=== PATIENT | female | born 1960 | race Caucasian/White ===

== ENCOUNTER 2024-06-07 14:56 | Observation (INO) | payer MEDICARE ==
[~2024-06-07] VITALS: Ht 165.1 cm; Wt 82.9 kg
[2024-06-07] MEDS: ONDANSETRON 4MG 2ML VIAL IV ONE (15:40)
[2024-06-07 15:53] LABS: HEMATOCRIT 35.4 % (36.0-47.0); HEMOGLOBIN 11.3 g/dl (12.0-15.5); MEAN CORPUSCULAR HEMOGLOBIN 29.7 pg (27.0-33.0); MEAN CORPUSCULAR HGB CONC 31.9 g/dl (32.0-36.5); MEAN CORPUSCULAR VOLUME 92.9 fl (80.0-96.0); PLATELET COUNT, AUTOMATED 275 10^3/uL (150-450); RED BLOOD COUNT 3.81 10^6/uL (4.00-5.40); WHITE BLOOD COUNT 10.1 10^3/uL (4.0-10.0)
[2024-06-07 16:12] LABS: BLOOD UREA NITROGEN 20 MG/DL (9-23); CALCIUM LEVEL 9.2 MG/DL (8.3-10.6); CARBON DIOXIDE LEVEL 27 MMOL/L (20-31); CHLORIDE LEVEL 104 MMOL/L (98-107); CREATININE FOR GFR 0.88 MG/DL (0.55-1.30); GLOMERULAR FILTRATION RATE > 60.0 (>45); GLUCOSE, FASTING 112 MG/DL (74-106); POTASSIUM SERUM 4.4 MMOL/L (3.5-5.1); SODIUM LEVEL 139 MMOL/L (136-145)
[2024-06-07] MEDS: BOOSTRIX VACCINE (TETANUS/DIPHTH/ACEL. PERTUSSIS) 0.5ML SYR IM.IMMUN ONE (16:40)
[2024-06-07] MEDS ORDERED: EZET10TA21 PO (16:54)
[2024-06-07] MEDS ORDERED: BRIL90TA PO (16:54)
[2024-06-07] MEDS ORDERED: ESCI5SOL3 PO (16:55)
[2024-06-07] MEDS ORDERED: ISOVUE-370 76% 100ML VIAL As Ordered ONE (18:42)
[2024-06-07] MEDS ORDERED: THERTAB52 PO (19:03)
[2024-06-07] MEDS ORDERED: ASPI81TA26 PO (19:03)
[2024-06-07] MEDS ORDERED: CALCCAP4 PO (19:03)
[2024-06-07] MEDS ORDERED: RANO500T2 PO (19:03)
[2024-06-07] MEDS ORDERED: LEXA1TAB2 PO (19:03)
[2024-06-07] MEDS ORDERED: BUSP5TA PO (19:03)
[2024-06-07] MEDS ORDERED: OMEP40CA5 PO (19:03)
[2024-06-07] MEDS ORDERED: ATOR40TA75 PO (19:03)
[2024-06-07] MEDS ORDERED: METO1TAB32 PO (19:03)
[2024-06-07] MEDS ORDERED: HOME MED LIST COMPLETE! XX SCH (19:05)
[2024-06-07] MEDS: ACETAMINOPHEN *IV* 1,000 MG in IV 1 EA IV ONE (21:12)
[2024-06-07] MEDS ORDERED: SILVER SULFADIAZINE 1% CR 50 GM JAR TOP ONE (23:00)
[2024-06-07] MEDS ORDERED: SILVER NITRATE APPLICATOR (1 = QTY 10) TOP ONE (23:40)
[2024-06-07] MEDS: SILVER NITRATE APPLICATOR (1 = QTY 10) TOP ONE (23:45)
[2024-06-08] MEDS: busPIRone 5 MG TAB PO SCH (00:23)
[2024-06-08] MEDS: ATORVASTATIN 20 MG TAB PO SCH (00:23)
[2024-06-08] MEDS: ESCITALOPRAM OXALATE 10 MG TAB (LEXAPRO) PO SCH (00:23)
[2024-06-08] MEDS: EZETIMIBE 10MG TABLET (ZETIA) PO SCH (01:31)
[2024-06-08] MEDS: ACETAMINOPHEN 325 MG TAB PO PRN (01:31)
[2024-06-08 01:34] VITALS: BP 144/68; TEMP 96.8; O2SAT 99
[2024-06-08] MEDS: RANOLAZINE 500MG ER TAB PO SCH (01:44)
[2024-06-08 04:44] VITALS: BP 132/66; TEMP 97.3; O2SAT 97
[2024-06-08 07:02] LABS: HEMATOCRIT 28.7 % (36.0-47.0); HEMOGLOBIN 9.4 g/dl (12.0-15.5); MEAN CORPUSCULAR HGB CONC 32.8 g/dl (32.0-36.5); MEAN CORPUSCULAR VOLUME 91.7 fl (80.0-96.0); PLATELET COUNT, AUTOMATED 242 10^3/uL (150-450); RED BLOOD COUNT 3.13 10^6/uL (4.00-5.40); WHITE BLOOD COUNT 7.8 10^3/uL (4.0-10.0)
[2024-06-08 07:32] LABS: BLOOD UREA NITROGEN 24 MG/DL (9-23); CALCIUM LEVEL 8.7 MG/DL (8.3-10.6); CARBON DIOXIDE LEVEL 25 MMOL/L (20-31); CHLORIDE LEVEL 104 MMOL/L (98-107); CREATININE FOR GFR 0.88 MG/DL (0.55-1.30); GLOMERULAR FILTRATION RATE > 60.0 (>45); GLUCOSE, FASTING 98 MG/DL (74-106); POTASSIUM SERUM 4.4 MMOL/L (3.5-5.1); SODIUM LEVEL 139 MMOL/L (136-145)
[2024-06-08] MEDS: TICAGRELOR 90 MG TABLET (BRILINTA) PO SCH (09:00)
[2024-06-08] MEDS: PANTOPRAZOLE 40MG VIAL IV SCH (09:35)
[2024-06-08] MEDS: DOCUSATE SODIUM 100MG CAPSULE PO SCH (09:35)
[2024-06-08] MEDS: METOPROLOL SUCC *XL* 12.5MG PER 1/2 TAB (TopROL *XL*) PO SCH (09:35)
[2024-06-08 12:00] VITALS: BP 125/60; TEMP 97.5; O2SAT 94
[2024-06-08] MEDS: ASPIRIN 81MG ENTERIC TABLET PO SCH (12:26)
[2024-06-08] MEDS: PERCOCET 5MG/325MG TAB PO PRN (12:27)
[2024-06-08 14:08] LABS: BASO % 0.1 % (0.0-1.0); EOS # 0.1 10^3/uL (0.0-0.5); EOS % 1.1 % (0.0-3.0); HEMATOCRIT 27.3 % (36.0-47.0); HEMOGLOBIN 9.2 g/dl (12.0-15.5); LYMPH # 1.8 10^3/uL (1.5-5.0); MEAN CORPUSCULAR HEMOGLOBIN 30.9 pg (27.0-33.0); MEAN CORPUSCULAR HGB CONC 33.7 g/dl (32.0-36.5); MEAN CORPUSCULAR VOLUME 91.6 fl (80.0-96.0); MONO # 0.7 10^3/uL (0.0-0.8); NEUTROPHILS # 4.4 10^3/uL (1.5-8.5); NEUTROPHILS % 62.5 % (36.0-66.0); PLATELET COUNT, AUTOMATED 221 10^3/uL (150-450); RED BLOOD COUNT 2.98 10^6/uL (4.00-5.40); WHITE BLOOD COUNT 7.1 10^3/uL (4.0-10.0)
[2024-06-08] MEDS: SILVER SULFADIAZINE 1% CR 50 GM JAR TOP PRN (18:46)
[2024-06-08 19:51] VITALS: BP 122/60; TEMP 96.8; O2SAT 94
[2024-06-09] MEDS: PERCOCET 5MG/325MG TAB PO PRN (01:18)
[2024-06-09] MEDS: MAALOX 30 ML SUSP *UDC PO PRN (02:31)
[2024-06-09 04:00] VITALS: BP 134/79; TEMP 97.2; O2SAT 98
[2024-06-09 06:25] LABS: BASO % 0.2 % (0.0-1.0); EOS # 0.1 10^3/uL (0.0-0.5); HEMATOCRIT 27.7 % (36.0-47.0); LYMPH # 1.5 10^3/uL (1.5-5.0); LYMPH % 15.2 % (24.0-44.0); MEAN CORPUSCULAR HEMOGLOBIN 29.4 pg (27.0-33.0); MEAN CORPUSCULAR HGB CONC 32.5 g/dl (32.0-36.5); MEAN CORPUSCULAR VOLUME 90.5 fl (80.0-96.0); MONO % 10.4 % (2.0-8.0); NEUTROPHILS # 7.3 10^3/uL (1.5-8.5); NEUTROPHILS % 72.7 % (36.0-66.0); PLATELET COUNT, AUTOMATED 227 10^3/uL (150-450); RED BLOOD COUNT 3.06 10^6/uL (4.00-5.40)
[2024-06-09 06:50] LABS: BLOOD UREA NITROGEN 21 MG/DL (9-23); CALCIUM LEVEL 8.4 MG/DL (8.3-10.6); CARBON DIOXIDE LEVEL 26 MMOL/L (20-31); CHLORIDE LEVEL 102 MMOL/L (98-107); CREATININE FOR GFR 0.85 MG/DL (0.55-1.30); GLOMERULAR FILTRATION RATE > 60.0 (>45); GLUCOSE, FASTING 127 MG/DL (74-106); POTASSIUM SERUM 3.7 MMOL/L (3.5-5.1); SODIUM LEVEL 137 MMOL/L (136-145)
[2024-06-09] MEDS: BACITRACIN OINTMENT 30GM TUBE TOP SCH (09:00)
[2024-06-09 12:00] VITALS: BP 124/58; TEMP 98.1; O2SAT 97
[2024-06-09] MEDS: MIRALAX *UNIT DOSE* 17GM PACKET PO PRN (17:24)
[2024-06-09] MEDS: MOM 30ML SUSPENSION UDC PO PRN (17:24)
[2024-06-09] MEDS: SENNA 8.6 MG TAB (SENOKOT) PO PRN (17:25)
[2024-06-09] MEDS: TICAGRELOR 90 MG TABLET (BRILINTA) PO SCH (20:33)
[2024-06-09 20:35] VITALS: BP 122/57; TEMP 97.5; O2SAT 95
[2024-06-10 04:11] VITALS: BP 122/57; TEMP 97.5; O2SAT 97
[2024-06-10 07:47] LABS: BASO % 0.2 % (0.0-1.0); EOS # 0.1 10^3/uL (0.0-0.5); EOS % 2.2 % (0.0-3.0); LYMPH # 1.6 10^3/uL (1.5-5.0); LYMPH % 25.5 % (24.0-44.0); MEAN CORPUSCULAR HEMOGLOBIN 30.4 pg (27.0-33.0); MEAN CORPUSCULAR HGB CONC 33.3 g/dl (32.0-36.5); MEAN CORPUSCULAR VOLUME 91.3 fl (80.0-96.0); MONO # 0.7 10^3/uL (0.0-0.8); MONO % 10.6 % (2.0-8.0); NEUTROPHILS # 3.9 10^3/uL (1.5-8.5); NEUTROPHILS % 61.2 % (36.0-66.0); PLATELET COUNT, AUTOMATED 177 10^3/uL (150-450); RED BLOOD COUNT 2.63 10^6/uL (4.00-5.40); WHITE BLOOD COUNT 6.4 10^3/uL (4.0-10.0)
[2024-06-10 12:00] VITALS: BP 113/46; TEMP 97.5; O2SAT 95
[2024-06-10 17:21] LABS: PERCENT SATURATION 13.5 % (13.2-45.0)
[2024-06-10 17:24] LABS: FERRITIN 87.9 NG/ML (7.3-270.7)
[2024-06-10 21:45] VITALS: BP 152/62; TEMP 98.1; O2SAT 97
[2024-06-11 03:31] VITALS: BP 119/53; TEMP 97.7; O2SAT 96
[2024-06-11 07:20] LABS: BASO % 0.3 % (0.0-1.0); EOS # 0.2 10^3/uL (0.0-0.5); EOS % 2.6 % (0.0-3.0); HEMATOCRIT 25.7 % (36.0-47.0); HEMOGLOBIN 8.3 g/dl (12.0-15.5); LYMPH # 1.9 10^3/uL (1.5-5.0); LYMPH % 28.2 % (24.0-44.0); MEAN CORPUSCULAR HGB CONC 32.3 g/dl (32.0-36.5); MEAN CORPUSCULAR VOLUME 92.8 fl (80.0-96.0); MONO # 0.6 10^3/uL (0.0-0.8); MONO % 9.3 % (2.0-8.0); NEUTROPHILS # 3.9 10^3/uL (1.5-8.5); PLATELET COUNT, AUTOMATED 216 10^3/uL (150-450); RED BLOOD COUNT 2.77 10^6/uL (4.00-5.40); WHITE BLOOD COUNT 6.6 10^3/uL (4.0-10.0)
[2024-06-11 12:00] VITALS: BP 124/58; TEMP 97.5
[2024-06-11] MEDS: TICAGRELOR 90 MG TABLET (BRILINTA) PO SCH (13:07)
[2024-06-11] MEDS: FERRIC CARBOXYMALTOSE INJ 750 MG, VIAL MATE ADAPTER 1 EACH in NS 100 ML IV ONE (16:15)
[2024-06-11 20:09] VITALS: BP 122/58; TEMP 98.8
[2024-06-11 20:33] VITALS: BP 123/57; TEMP 98.4; O2SAT 97
[2024-06-11] MEDS: PANTOPRAZOLE 40MG TAB (PROTONIX) PO SCH (21:17)
[2024-06-11 21:18] VITALS: BP 122/57; TEMP 98.8; O2SAT 97
[2024-06-11 21:59] VITALS: BP 128/59; TEMP 98.8; O2SAT 96
[2024-06-12] MEDS: HYDROMORPHONE HCL 0.5 MG/ 0.5 ML SYRINGE IV ONE (02:31)
[2024-06-12 04:00] VITALS: BP 135/59; TEMP 98.2; O2SAT 97
[2024-06-12 09:02] VITALS: BP 137/65
[2024-06-12 11:18] VITALS: O2SAT 95
[2024-06-12] MEDS ORDERED: ACET-653 PO (12:48)
== END 2024-06-12 14:15 | disposition home health service (06) ==
LOC: M ED 14:56 → EDBD 14:56 → M ED INP 14:57 → M MS5PR 06-08 01:15
PROVIDERS: ADMIT Student in an Organized Health Care Education/Training Program; ATTEND Internal Medicine
DX: S22.42XA Multiple fractures of ribs, left side, initial encounter for closed fracture (principal); S00.03XA Contusion of scalp, initial encounter; W10.8XXA Fall (on) (from) other stairs and steps, initial encounter; Y92.89 Other specified places as the place of occurrence of the external cause; I25.10 Atherosclerotic heart disease of native coronary artery without angina pectoris; E78.5 Hyperlipidemia, unspecified; I73.9 Peripheral vascular disease, unspecified; Z98.61 Coronary angioplasty status; R11.0 Nausea; K21.9 Gastro-esophageal reflux disease without esophagitis; F39 Unspecified mood [affective] disorder; Z79.82 Long term (current) use of aspirin; Z79.899 Other long term (current) drug therapy; Z88.0 Allergy status to penicillin; Y99.8 Other external cause status
CPT/HCPCS: 36415; 51702; 70450; 70486; 70498; 71260; 72125; 74177; 80048; 82728; 83550; 84238; 85025; 85027; 86850; 86900; 86901; 86920; 93041; 93306; 94760; 96374; 96375; 96376; 97116; 97161; 97165; 97530; 97535; 99291; G0378; G0390; J0131; J1171; J1439; J2405; J2470; P9016; Q9967